=== PATIENT | female | born 1995 | race American Indian/Alaskan Native ===

== ENCOUNTER 2019-11-13 22:01 | Emergency (ER) | payer SELFPAY ==
[2019-11-13 22:41] VITALS: BP 148/80
--- NOTE | 2019-11-14 00:59 | Emergency Department Report ---
HPI - General Chief Complaint: Earache Time Seen by Provider: 11/14/19 00:54 - HPI HPI: This is a 24-year-old female presents to the emergency department with a complaint of bilateral ear pain, right greater than left. She also feels like she has decreased hearing in the left ear. She denies any fever, headache, vision change, sore throat. She has not taken anything for symptoms prior to presentation. No past medical history. No primary care physician. ED Past Medical Hx - Past Medical History Previous Medical History?: Yes Hx Psychiatric Treatment: Yes (depression) - Surgical History Past Surgical History?: No - Social History Smoking Status: Never Smoker Substance Use Type: None - Medications Home Medications: Home Medications Medication Instructions Recorded Confirmed Last Taken Type Norgestimate-Ethinyl Estradiol 0.25 mg PO DAILY 12/28/17 12/28/17 12/28/17 History [Sprintec 28 Day Tablet] Azithromycin [Zithromax Z-EUGENE] 250 mg PO DAILY #6 tab 11/14/19 Unknown Rx Fluticasone [Flonase] 1 spray NS QDAY #1 bottle 11/14/19 Unknown Rx ED Review of Systems ROS: Stated complaint: BILATERAL EAR PAIN Other details as noted in HPI Comment: All other systems reviewed and negative Constitutional: denies: see HPI, fever Eyes: denies: eye pain, vision change ENT: ear pain. denies: throat pain Respiratory: denies: cough, shortness of breath Cardiovascular: denies: chest pain Skin: denies: rash, lesions Neurological: denies: headache Physical Exam - Physical Exam Vital Signs: Vital Signs 11/13/19 22:37 Temperature 98.6 F Pulse Rate 104 H Respiratory 18 Rate Blood Pressure 148/80 O2 Sat by Pulse 99 Oximetry Physical Exam: GENERAL: The patient is well-developed well-nourished. HENT: Normocephalic. Atraumatic. Patient has moist mucous membranes. Oropharynx is clear. Normal-appearing bilateral external ear canals and left tympanic membrane. The right tympanic membrane is erythematous and bulging consistent with otitis media. EYES: Extraocular motions are intact. NECK: Supple. Trachea is midline. SKIN: Skin is warm and dry. NEURO: The patient is awake, alert, and oriented. The patient is cooperative. Normal speech. MUSCULOSKELETAL: There is no tenderness or deformity. ED Course Vital Signs 11/13/19 22:37 Temperature 98.6 F Pulse Rate 104 H Respiratory 18 Rate Blood Pressure 148/80 O2 Sat by Pulse 99 Oximetry ED Medical Decision Making - Medical Decision Making Patient complains of right ear pain and left ear decreased hearing. She does not appear to have any signs of hearing impairment at this time. She has a right-sided otitis media. There is also some boggy nasal mucosa. She will be placed on azithromycin and Flonase. She has been instructed to [facility] with [facility] and return to the ER with any worsening of her symptoms or with any acute distress. Critical Care Time: No Critical care attestation.: If time is entered above; I have spent that time in minutes in the direct care of this critically ill patient, excluding procedure time. ED Disposition Clinical Impression: Otitis media Qualifiers: Otitis media type: unspecified Chronicity: acute Qualified Code(s): H66.90 - Otitis media, unspecified, unspecified ear Disposition: - TO HOME OR SELFCARE Is pt being admited?: No Condition: Stable Instructions: Otitis Media (ED) Additional Instructions: Please follow-up with a primary care physician in the next few days. Return to the emergency department with any worsening of your symptoms or any acute distress. Prescriptions: Fluticasone [Flonase] 1 spray NS QDAY #1 bottle Azithromycin [Zithromax Z-EUGENE] 250 mg PO DAILY #6 tab Referrals: PRIMARY MD RAFAELA [Primary Care Provider] - 3-5 Days SHAINA CHUNG MD [Staff Physician] - 3-5 Days [facility] [Provider Group] - 3-5 Days Time of Disposition: 00:58
== END 2019-11-14 01:08 | disposition home or self-care (01) ==
LOC: ED 22:01
DX: H66.93 Otitis media, unspecified, bilateral (principal); F32.9 Major depressive disorder, single episode, unspecified; Z79.899 Other long term (current) drug therapy; Z88.0 Allergy status to penicillin

== ENCOUNTER 2021-01-26 08:10 | Emergency (ER) | payer OTHER ==
[2021-01-26 08:19] VITALS: BP 149/98
--- NOTE | 2021-01-26 09:34 | Emergency Department Report ---
Minor Respiratory - HPI Chief Complaint: Upper Respiratory Infection Stated Complaint: COUGH/ CONGESTION Time Seen by Provider: 01/26/21 09:01 Duration: 3 Days Severity: mild Minor Respiratory: Yes Rhinorrhea, Yes Cough, Yes Chest Pain, No Fever Other History: 25-year-old -[place] female presents to the emergency room complaining of headache and chest pain with cough. States she has taken [id number] cough medication. She denies any history of asthma. She denies any fever no chills. She states she took a Covid test on Tuesday which was negative. Last menstrual period was 01/19/2021. ED Review of Systems ROS: Stated complaint: COUGH/ CONGESTION Other details as noted in HPI Comment: All other systems reviewed and negative ED Past Medical Hx - Past Medical History Previous Medical History?: Yes Hx Psychiatric Treatment: Yes (depression) - Surgical History Past Surgical History?: No - Social History Smoking Status: Never Smoker Substance Use Type: None - Medications Home Medications: Home Medications Medication Instructions Recorded Confirmed Last Taken Type Norgestimate-Ethinyl Estradiol 0.25 mg PO DAILY 12/28/17 12/28/17 12/28/17 History [Sprintec 28 Day Tablet] Azithromycin [Zithromax Z-EUGENE] 250 mg PO DAILY #6 tab 11/14/19 Unknown Rx Fluticasone [Flonase] 1 spray NS QDAY #1 bottle 11/14/19 Unknown Rx Promethazine /Codeine 5 ml PO Q6H PRN #100 ml 01/26/21 Unknown Rx [Phenergan/Codeine 6.25-10 mg/5 ml] Minor Respiratory Exam - Exam General: Vital signs noted. No distress. Alert and acting appropriately. HEENT: Yes Moist Mucous Membranes, No Pharyngeal Erythema, No Pharyngeal Exudates, No Rhinorrhea, No Conjuctival Injection, No Frontal Tenderness, No Maxillary Tenderness Ear: Neither TM Bulge, Neither TM Erythema, Neither EAC Pain, Neither EAC Discharge Neck: Yes Supple, No Adenopathy Lungs: Yes Good Air Exchange, No Wheezes, No Ronchi, No Stridor, No Cough, No Labored Respirations, No Retractions, No Use of Accessory Muscles, No Other Abnormal Lung Sounds Heart: Yes Regular, No Murmur Abdomen: Yes Normal Bowel Sounds, No Tenderness, No Peritoneal Signs Skin: No Rash, No Edema Neurologic: Alert and oriented, no deficits. Musculoskeletal: Unremarkable. ED Course Vital Signs 01/26/21 08:18 Temperature 97.8 F Pulse Rate 64 Respiratory 20 Rate Blood Pressure 149/98 O2 Sat by Pulse 100 Oximetry ED Medical Decision Making - Radiology Data Radiology results: report reviewed [facility] [address] [place] [address] XRay Report Signed Patient: JACKIE SOLOMON MR#: [id number] : 1995 Acct:[id number] Age/Sex: 25 / F ADM Date: 01/26/21 Loc: ED Attending Dr: Ordering Physician: BERNADETTE HAAS Date of Service: 01/26/21 Procedure(s): XR chest routine 2V Accession Number(s): [id number] cc: BERNADETTE HAAS Fluoro Time In Minutes: XR chest routine 2V INDICATION / CLINICAL INFORMATION: Cough, dyspnea COMPARISON: None available. FINDINGS: SUPPORT DEVICES: None. HEART / MEDIASTINUM: No significant abnormality. LUNGS / PLEURA: Lungs are clear. Costophrenic sulci are sharp. No pneumothorax. ADDITIONAL FINDINGS: No significant additional findings. IMPRESSION: 1. No acute findings. Signer Name: Pelon Trinh MD Signed: 01/26/2021 9:35 AM Workstation Name: [id number] Transcribed By: FLORY Dictated By: Pelon Trinh MD Electronically Authenticated By: Pelon Trinh MD Signed Date/Time: 01/26/21934 DD/ 2 TD/TT: - Medical Decision Making 25-year-old -[place] female presents to the emergency room complaining of headache and chest pain with cough. States she has taken [id number] cough medication. She denies any history of asthma. She denies any fever no chills. She states she took a Covid test on Tuesday which was negative. Last menstrual period was 01/19/2021. Chest x-ray and ibuprofen. Chest x-ray is negative for any acute findings. Critical care attestation.: If time is entered above; I have spent that time in minutes in the direct care of this critically ill patient, excluding procedure time. ED Disposition Clinical Impression: URI, acute Disposition: HOME / SELF CARE / HOMELESS Is pt being admited?: No Does the pt Need Aspirin: No Condition: Stable Instructions: Viral Respiratory Infection, [id number] Additional Instructions: Chest x-ray is negative for any acute findings. I encourage her to take Tylenol ibuprofen for headache and chest wall pain from coughing. Please take cough medication as prescribed. Follow-up with your primary care provider. Be sure to increase your fluids. Prescriptions: Promethazine /Codeine [Phenergan/Codeine 6.25-10 mg/5 ml] 5 ml PO Q6H PRN #100 ml PRN Reason: cough Referrals: PRIMARY CAREMD [Primary Care Provider] - 3-5 Days SHAINA CHUNG MD [Staff Physician] - 3-5 Days Forms: Work/School Release Form(ED) Time of Disposition: 10:20
[2021-01-26] MEDS ORDERED: IBUPROFEN 600 MG TAB PO ONE (09:35)
--- NOTE | 2021-01-26 09:39 | XRay Report ---
XR chest routine 2V INDICATION / CLINICAL INFORMATION: Cough, dyspnea COMPARISON: None available. FINDINGS: SUPPORT DEVICES: None. HEART / MEDIASTINUM: No significant abnormality. LUNGS / PLEURA: Lungs are clear. Costophrenic sulci are sharp. No pneumothorax. ADDITIONAL FINDINGS: No significant additional findings. IMPRESSION: 1. No acute findings. Signer Name: Pelon Trinh MD Signed: 01/26/2021 9:35 AM Workstation Name: [id number]
== END 2021-01-26 10:46 | disposition home or self-care (01) ==
LOC: ED 08:10
DX: J06.9 Acute upper respiratory infection, unspecified (principal); F32.9 Major depressive disorder, single episode, unspecified; Z88.1 Allergy status to other antibiotic agents; Z79.899 Other long term (current) drug therapy
CPT/HCPCS: 71046; 99283